=== PATIENT | female | born 1965 | race African-American/Black ===

== ENCOUNTER 2016-03-20 00:39 | Observation (INO) | payer OTHER ==
[~2016-03-20] VITALS: Ht 162.6 cm; Wt 97.7 kg
[~2016-03-20 00:39] MED LIST: BIOTIN1000 MICRO PO; CALCIUM 600 MG1 EACH PO; MICROZIDE12.5 M1 PO; POTASSIUM CHLO10 ME4 PO; PREDNISONE20 MG PO; PRILOSEC40 MG PO; VALIUM5 MG PO; VICODIN 5-3001 EACH PO; WOMEN'S DAILY1 EACH PO
[2016-03-20 01:30] LABS: HEMATOCRIT 29.9 % (36.0-46.0); MCH 26.5 PG (29.0-34.0); MCHC 33.4 G/DL (30.0-36.0); MCV 79.3 FL (83-99); MEAN PLAT.VOLUME 10.4 uM^3 (9.5-12.4); RBC DIS.WIDTH-CV 13.4 % (11.8-14.6); RBC DIS.WIDTH-SD 37.1 % (39-53); RED BLOOD COUNT 3.77 M/uL (3.80-5.20); WHITE BLOOD COUNT 6.6 K/uL (4.1-10.2)
[2016-03-20 01:33] LABS: PLATELET COUNT 322 K/uL (156-360)
[2016-03-20 01:41] LABS: CHLORIDE 105 mEq/L (99-109); POTASSIUM 3.3 mEq/L (3.7-5.4); SODIUM 139 mEq/L (136-147)
[2016-03-20 01:42] LABS: GLUCOSE 109 mg/dL (70-99)
[2016-03-20 01:44] LABS: ANION GAP 11 MEQ/L (2-14)
[2016-03-20 01:46] LABS: GFR ESTIMATE (CALCULATED) > 59 mL/min/
[2016-03-20 01:47] LABS: UREA NITROGEN (BUN) 7 mg/dL (9-23)
[2016-03-20 01:50] LABS: TROP-I INTERPRETATION NEGATIVE; TROPONIN-I < 0.01 ng/mL (0.0-0.30)
[2016-03-20 04:52] LABS: HDL CHOLESTEROL 56 MG/DL (Desirable>=50); LDL CHOLESTEROL 111 mg/dL (Desirable<100); NON-HDL CHOLESTEROL 123 mg/dL (Desirable<160); TOTAL CHOLESTEROL 179 mg/dL (Desirable<200); TRIGLYCERIDES 59 MG/DL (Normal: <150)
[2016-03-20 07:03] LABS: Estimated Average Glucose 123 mg/dL (70-123); HEMOGLOBIN A1c (GLYCOHEMOGLOB) 5.9 % HGB (Below 5.7)
[2016-03-20] MEDS ORDERED: PRILOSEC OTC20 MG PO (10:14)
[2016-03-20] MEDS ORDERED: ULTRAM50 MG PO (10:15)
[2016-03-20 10:56] LABS: MAGNESIUM 1.9 mg/dl (1.3-2.7); SAMPLE HEMOLYSIS CHECK 0; SAMPLE ICTERIC CHECK 0; SAMPLE LIPEMIA CHECK 0
[2016-03-20 13:51] LABS: TROP-I INTERPRETATION NEGATIVE; TROPONIN-I < 0.01 ng/mL (0.0-0.30)
[2016-03-20 18:14] VITALS: BP 151/71
== END 2016-03-20 16:18 | disposition home or self-care (01) ==
LOC: EME 00:39 → EDOF 03:22
PROVIDERS: Emergency Medicine; Internal Medicine Critical Care Medicine; Physician Assistant
DX: R07.89 Other chest pain (principal); I16.0 Hypertensive urgency; I10 Essential (primary) hypertension; C50.919 Malignant neoplasm of unspecified site of unspecified female breast; Z90.13 Acquired absence of bilateral breasts and nipples; Z98.82 Breast implant status; Z98.84 Bariatric surgery status; R20.2 Paresthesia of skin; K21.9 Gastro-esophageal reflux disease without esophagitis; Z88.8 Allergy status to other drugs, medicaments and biological substances
CPT/HCPCS: 70450; 71020; 71275; 80048; 80061; 83036; 83735; 83880; 84484; 85027; 93005; 93880; 99281; 99285; G0378; J1650; J1885; J2270; J2405; J7030

== ENCOUNTER 2016-08-24 14:22 | Observation (INO) | payer OTHER ==
[~2016-08-24] VITALS: Ht 162.6 cm; Wt 96.3 kg
[~2016-08-24 14:22] MED LIST changes: +PRILOSEC OTC20 MG PO; +ULTRAM50 MG PO
[2016-08-24 15:23] LABS: HEMATOCRIT 30.2 % (36.0-46.0); MCH 27.7 PG (29.0-34.0); MCHC 31.8 G/DL (30.0-36.0); MEAN PLAT.VOLUME 11.2 uM^3 (9.5-12.4); PLATELET COUNT 201 K/uL (156-360); RBC DIS.WIDTH-CV 17.1 % (11.8-14.6); RBC DIS.WIDTH-SD 54.2 % (39-53); RED BLOOD COUNT 3.47 M/uL (3.80-5.20); WHITE BLOOD COUNT 4.2 K/uL (4.1-10.2)
[2016-08-24 15:40] LABS: CHLORIDE 111 mEq/L (99-109); POTASSIUM 4.4 mEq/L (3.7-5.4); SODIUM 142 mEq/L (136-147)
[2016-08-24 15:42] LABS: GLUCOSE 90 mg/dL (70-99)
[2016-08-24 15:43] LABS: ANION GAP 7 MEQ/L (2-14)
[2016-08-24 15:46] LABS: GFR ESTIMATE (CALCULATED) > 59 mL/min/
[2016-08-24 15:47] LABS: TROP-I INTERPRETATION NEGATIVE; TROPONIN-I < 0.01 ng/mL (0.0-0.30); UREA NITROGEN (BUN) 13 mg/dL (9-23)
[2016-08-24 20:17] LABS: TROP-I INTERPRETATION NEGATIVE; TROPONIN-I < 0.01 ng/mL (0.0-0.30)
[2016-08-24] MEDS ORDERED: NOLVADEX20 MG PO (23:05)
[2016-08-25 01:00] VITALS: BP 165/79
[2016-08-25 04:51] LABS: TROP-I INTERPRETATION NEGATIVE; TROPONIN-I < 0.01 ng/mL (0.0-0.30)
[2016-08-25 05:01] LABS: HDL CHOLESTEROL 61 MG/DL (Desirable>=50); LDL CHOLESTEROL 80 mg/dL (Desirable<100); NON-HDL CHOLESTEROL 87 mg/dL (Desirable<160); TOTAL CHOLESTEROL 148 mg/dL (Desirable<200); TRIGLYCERIDES 37 MG/DL (Normal: <150)
[2016-08-25 05:14] VITALS: BP 135/76
[2016-08-25 07:22] LABS: Estimated Average Glucose 94 mg/dL (70-123); HEMOGLOBIN A1c (GLYCOHEMOGLOB) 4.9 % HGB (Below 5.7)
[2016-08-25 08:21] VITALS: BP 133/82
[2016-08-25 12:42] VITALS: BP 126/72
== END 2016-08-25 15:24 | disposition home or self-care (01) ==
LOC: EME 14:22 → EDOF 23:33 → 5WEST 23:33 → EDOF 08-25 00:45 → 5WEST 08-25 00:53
PROVIDERS: Physician Assistant; Physician Assistant Medical
DX: R20.0 Anesthesia of skin (principal); R07.89 Other chest pain; M54.9 Dorsalgia, unspecified; Z85.3 Personal history of malignant neoplasm of breast; Z86.73 Personal history of transient ischemic attack (TIA), and cerebral infarction without residual deficits; K21.9 Gastro-esophageal reflux disease without esophagitis; H54.42 Blindness, left eye, normal vision right eye; S05.92XS Unspecified injury of left eye and orbit, sequela; I10 Essential (primary) hypertension; F41.9 Anxiety disorder, unspecified; E66.01 Morbid (severe) obesity due to excess calories; Z68.34 Body mass index [BMI] 34.0-34.9, adult; D64.9 Anemia, unspecified; Z98.84 Bariatric surgery status
CPT/HCPCS: 70450; 70551; 71020; 80048; 80061; 83036; 84484; 85027; 93005; 93306; 99281; 99285; G0378

== ENCOUNTER 2016-10-24 10:23 | Emergency (ER) | payer OTHER ==
[~2016-10-24] VITALS: Ht 162.6 cm; Wt 94.2 kg
[~2016-10-24 10:23] MED LIST changes: +NOLVADEX20 MG PO
[2016-10-24 11:19] LABS: EOSINOPHIL COUNT 0.1 K/uL (0-0.3); IMMATURE GRANULOCYTE (%) 0.3 % (0.0-0.7); INSTRUMENT ABS NEUTROPHIL CT 2.2 K/uL; MCH 26.5 PG (29.0-34.0); MCHC 32.5 G/DL (30.0-36.0); MCV 81.6 FL (83-99); MEAN PLAT.VOLUME 10.8 uM^3 (9.5-12.4); MONOCYTE (%) 8.5 % (3-12); MONOCYTE COUNT 0.3 K/uL (0-0.8); NEUTROPHIL (%) 61.6 % (45-76); NEUTROPHIL COUNT 2.2 K/uL (1.8-6.4); PLATELET COUNT 179 K/uL (156-360); RBC DIS.WIDTH-CV 13.5 % (11.8-14.6); RBC DIS.WIDTH-SD 40.4 % (39-53); RED BLOOD COUNT 3.92 M/uL (3.80-5.20); WHITE BLOOD COUNT 3.5 K/uL (4.1-10.2)
[2016-10-24 11:30] LABS: CHLORIDE 110 mEq/L (99-109); SODIUM 141 mEq/L (136-147)
[2016-10-24 11:32] LABS: GLUCOSE 86 mg/dL (70-99)
[2016-10-24 11:34] LABS: ANION GAP 7 MEQ/L (2-14); TOTAL BILIRUBIN 0.8 mg/dL (0.0-1.0)
[2016-10-24 11:36] LABS: ALKALINE PHOSPHATASE 61 IU/L (3-129); GFR ESTIMATE (CALCULATED) > 59 mL/min/
[2016-10-24 11:37] LABS: UREA NITROGEN (BUN) 14 mg/dL (9-23)
[2016-10-24 11:44] LABS: ERTH.SED.RATE 14 MM/HR (0-30)
[2016-10-24 12:12] LABS: C-REACTIVE PROTEIN < 1.0 MG/L (0-10)
[2016-10-24] MEDS ORDERED: NORCO 5/3251 TABLET PO (15:40)
[2016-10-24 15:58] VITALS: BP 161/112
== END 2016-10-24 15:59 | disposition home or self-care (01) ==
LOC: EME 10:23
PROVIDERS: Emergency Medicine
DX: G89.18 Other acute postprocedural pain (principal); R20.2 Paresthesia of skin; Z90.13 Acquired absence of bilateral breasts and nipples; Z85.3 Personal history of malignant neoplasm of breast; R11.0 Nausea; I44.0 Atrioventricular block, first degree; Z98.84 Bariatric surgery status
CPT/HCPCS: 71260; 80053; 85025; 85651; 86140; 93005; 99281; 99284; J7030

== ENCOUNTER 2017-02-18 12:15 | Day surgery (SDC) | payer OTHER ==
[~2017-02-18] VITALS: Ht 162.6 cm; Wt 94.3 kg
[~2017-02-18 12:15] MED LIST changes: +NORCO 5/3251 TABLET PO; +OMEPRAZOLE40 M1 PO; -PRILOSEC OTC20 MG PO; +SCOPOLAMINE1 EACH TD; +TYLENOL EXTRA500 MG PO; +XANAX0.5 MG PO; +ZYRTEC10 M3 PO
[2017-02-18 13:18] VITALS: BP 175/89
[2017-02-18 20:22] VITALS: BP 156/88
[2017-02-18 21:23] VITALS: BP 140/78
== END 2017-02-18 21:45 | disposition home or self-care (01) ==
LOC: SDC 12:15
DX: Z45.811 Encounter for adjustment or removal of right breast implant (principal); Z45.812 Encounter for adjustment or removal of left breast implant; T85.44XA Capsular contracture of breast implant, initial encounter; Z90.13 Acquired absence of bilateral breasts and nipples; Z85.3 Personal history of malignant neoplasm of breast; E66.01 Morbid (severe) obesity due to excess calories; Z68.35 Body mass index [BMI] 35.0-35.9, adult; I10 Essential (primary) hypertension; K21.9 Gastro-esophageal reflux disease without esophagitis; Z98.84 Bariatric surgery status; M19.072 Primary osteoarthritis, left ankle and foot; M19.071 Primary osteoarthritis, right ankle and foot; H54.62 Unqualified visual loss, left eye, normal vision right eye
CPT/HCPCS: C1789; J0131; J0330; J0690; J1100; J1170; J2250; J2405; J3010

== ENCOUNTER 2017-03-29 23:33 | Emergency (ER) | payer OTHER ==
[~2017-03-29] VITALS: Ht 165.1 cm; Wt 99.4 kg
[2017-03-30 01:24] VITALS: BP 160/89
== END 2017-03-30 01:34 | disposition home or self-care (01) ==
LOC: EME 23:33
DX: L98.8 Other specified disorders of the skin and subcutaneous tissue (principal); Z85.3 Personal history of malignant neoplasm of breast
CPT/HCPCS: 99281; 99284

== ENCOUNTER 2017-11-10 21:49 | Emergency (ER) | payer OTHER ==
[~2017-11-10] VITALS: Ht 165.1 cm; Wt 103.6 kg
[2017-11-10 23:24] LABS: HEMATOCRIT 31.8 % (36.0-46.0); HEMOGLOBIN 10.4 G/DL (11.9-15.5); MCH 27.4 PG (29.0-34.0); MCHC 32.7 G/DL (30.0-36.0); MCV 83.7 FL (83-99); PLATELET COUNT 180 K/uL (156-360); RBC DIS.WIDTH-CV 13.6 % (11.8-14.6); RBC DIS.WIDTH-SD 41.4 % (39-53); WHITE BLOOD COUNT 5.3 K/uL (4.1-10.2)
[2017-11-10 23:36] LABS: ALBUMIN 3.6 g/dL (3.2-4.8); CHLORIDE 111 mEq/L (99-109); POTASSIUM 3.8 mEq/L (3.7-5.4); SODIUM 141 mEq/L (136-147)
[2017-11-10 23:39] LABS: GLUCOSE 98 mg/dL (70-99); TOTAL PROTEIN 6.8 g/dL (6.4-8.3)
[2017-11-10 23:41] LABS: TOTAL BILIRUBIN 0.3 mg/dL (0.0-1.0)
[2017-11-10 23:42] LABS: ALKALINE PHOSPHATASE 58 IU/L (3-129); CREATININE 0.7 mg/dL (0.6-1.3); GFR ESTIMATE (CALCULATED) > 59 mL/min/
[2017-11-10 23:43] LABS: UREA NITROGEN (BUN) 19 mg/dL (9-23)
[2017-11-10 23:44] LABS: AST (GOT) 16 IU/L (2-34)
[2017-11-10 23:45] LABS: ALT (GPT) 9 IU/L (3-49)
[2017-11-10 23:46] LABS: TROP-I INTERPRETATION NEGATIVE; TROPONIN-I < 0.01 ng/mL (0.0-0.30)
[2017-11-11 01:12] LABS: APPEARANCE CLEAR ((CLEAR)); BILIRUBIN NEGATIVE; BLOOD NEGATIVE; COLOR YELLOW ((YELLOW)); GLUCOSE (STRIP) NEGATIVE; KETONES NEGATIVE; LEUKOCYTES NEGATIVE; NITRITE NEGATIVE; PROTEIN (STRIP) NEGATIVE; SPECIFIC GRAVITY 1.025 (1.000-1.030); UCUL ADDED? NO
[2017-11-11] MEDS ORDERED: IBU600 MG PO (01:34)
[2017-11-11] MEDS ORDERED: CLEOCIN300 MG PO (01:34)
[2017-11-11 02:11] VITALS: BP 171/98
[2017-11-11] MEDS ORDERED: OMEPRAZOLE40 M1 PO (23:51)
[2017-11-11] MEDS ORDERED: NOLVADEX20 MG PO (23:52)
[2017-11-11] MEDS ORDERED: MICROZIDE12.5 M1 PO (23:53)
== END 2017-11-11 01:15 | disposition home or self-care (01) ==
LOC: EME 21:49
PROVIDERS: Emergency Medicine
DX: R53.83 Other fatigue (principal); R51 Headache; K08.89 Other specified disorders of teeth and supporting structures; E86.0 Dehydration; R55 Syncope and collapse; I44.0 Atrioventricular block, first degree; I45.10 Unspecified right bundle-branch block; J45.909 Unspecified asthma, uncomplicated; F41.9 Anxiety disorder, unspecified; Z87.442 Personal history of urinary calculi; Z98.84 Bariatric surgery status; Z86.718 Personal history of other venous thrombosis and embolism; Z86.2 Personal history of diseases of the blood and blood-forming organs and certain disorders involving the immune mechanism; Z85.3 Personal history of malignant neoplasm of breast; Z90.13 Acquired absence of bilateral breasts and nipples; Z88.8 Allergy status to other drugs, medicaments and biological substances
CPT/HCPCS: 70450; 80053; 81003; 83605; 84484; 85027; 93005; 99281; 99285; J1885; J2405; J7030

== ENCOUNTER 2017-11-11 23:46 | Emergency (ER) | payer OTHER ==
[~2017-11-11] VITALS: Ht 165.1 cm; Wt 106.7 kg
[~2017-11-11 23:46] MED LIST changes: +CLEOCIN300 MG PO; +IBU600 MG PO
[2017-11-11] MEDS ORDERED: OMEPRAZOLE40 M1 PO (23:51)
[2017-11-11] MEDS ORDERED: NOLVADEX20 MG PO (23:52)
[2017-11-11] MEDS ORDERED: MICROZIDE12.5 M1 PO (23:53)
[2017-11-12 00:41] LABS: HEMATOCRIT 33.9 % (36.0-46.0); HEMOGLOBIN 11.2 G/DL (11.9-15.5); MCH 27.5 PG (29.0-34.0); MCV 83.1 FL (83-99); PLATELET COUNT 191 K/uL (156-360); RBC DIS.WIDTH-CV 13.5 % (11.8-14.6); RBC DIS.WIDTH-SD 40.6 % (39-53); RED BLOOD COUNT 4.08 M/uL (3.80-5.20); WHITE BLOOD COUNT 8.7 K/uL (4.1-10.2)
[2017-11-12 00:50] LABS: ALBUMIN 3.9 g/dL (3.2-4.8); CHLORIDE 108 mEq/L (99-109); SODIUM 141 mEq/L (136-147)
[2017-11-12 00:52] LABS: GLUCOSE 113 mg/dL (70-99); TOTAL PROTEIN 7.2 g/dL (6.4-8.3)
[2017-11-12 00:56] LABS: ALKALINE PHOSPHATASE 52 IU/L (3-129); CREATININE 0.7 mg/dL (0.6-1.3); GFR ESTIMATE (CALCULATED) > 59 mL/min/
[2017-11-12 00:57] LABS: UREA NITROGEN (BUN) 17 mg/dL (9-23)
[2017-11-12 00:58] LABS: AST (GOT) 20 IU/L (2-34)
[2017-11-12 00:59] LABS: ALT (GPT) 9 IU/L (3-49); LIPASE 13 U/L (1.0-51.0)
[2017-11-12 01:00] LABS: TOTAL BILIRUBIN 0.6 mg/dL (0.0-1.0)
[2017-11-12 02:52] LABS: APPEARANCE CLEAR ((CLEAR)); BILIRUBIN NEGATIVE; BLOOD NEGATIVE; COLOR YELLOW ((YELLOW)); GLUCOSE (STRIP) NEGATIVE; KETONES 5; LEUKOCYTES NEGATIVE; NITRITE NEGATIVE; PROTEIN (STRIP) NEGATIVE; SPECIFIC GRAVITY 1.038 (1.000-1.030); UCUL ADDED? NO; UROBILINOGEN 0.2 MG/DL (0.2-1.0)
[2017-11-12] MEDS ORDERED: ZOFRAN4 MG PO (04:28)
[2017-11-12] MEDS ORDERED: MAALOX ADVANCE355 ML PO (04:28)
[2017-11-12] MEDS ORDERED: ACID REDUCER20 MG PO (04:28)
[2017-11-12 04:39] VITALS: BP 116/67
== END 2017-11-12 04:42 | disposition home or self-care (01) ==
LOC: EME 23:46
PROVIDERS: Emergency Medicine
DX: K52.9 Noninfective gastroenteritis and colitis, unspecified (principal); Z87.442 Personal history of urinary calculi; Z98.84 Bariatric surgery status; Z85.3 Personal history of malignant neoplasm of breast; Z90.13 Acquired absence of bilateral breasts and nipples; K57.30 Diverticulosis of large intestine without perforation or abscess without bleeding; K43.9 Ventral hernia without obstruction or gangrene
CPT/HCPCS: 74177; 80053; 81003; 83690; 85027; 99281; 99284; J2270; J2405; J7030